=== PATIENT | female | born 1960 | race Caucasian/White ===

== ENCOUNTER 2021-08-14 15:38 | Outpatient (CLI) | payer OTHER, SELFPAY ==
--- NOTE | 2021-08-14 15:51 | US_ITS ---
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 Palpable area in the LEFT axilla after Covid 19 thorax examination. COMPARISON: None available. TECHNIQUE: 2-D and Doppler. There are multiple lymph nodes within the LEFT axilla. There is one lymph node labeled #3 with an asy mmetric cortex with normal fatty hilum and normal vascularity. This may be a reaction to Covid 19 of explanation. The remaining lymph nodes are normal. US/US breast LT limited* [id number] IMPRESSION: BI-RADS: 3-Probably Benign FOLLOW-UP: 3 Month Follow-up Single lymph node labeled #3 in the axilla with an asymmetric cortex and is susan y mildly abnormal. This may be a reaction to the patient's recent vaccination. Recommend follow-up ultrasound in 3 months. Also patient should be scheduled for a mammogram. This mammogram should be obta ined greater than 10 weeks post vaccination. Strongly recommend the mammogram b e obtained at the same time as the 3 month ultrasound follow-up.
== END 2021-08-14 15:39 | disposition home or self-care (01) ==
LOC: RAD 15:43
PROVIDERS: PCP Family Medicine; Visit Provider Family Medicine
DX: C50.012 Malignant neoplasm of nipple and areola, left female breast (principal); N63.20 Unspecified lump in the left breast, unspecified quadrant
CPT/HCPCS: 76642

== ENCOUNTER → 2021-09-17 08:06 | Outpatient (BNVA) | payer OTHER, SELFPAY | PROVIDERS: PCP Family Medicine; Referring Provider Family Medicine; Visit Provider Internal Medicine | DX: E11.65 Type 2 diabetes mellitus with hyperglycemia (principal); E11.40 Type 2 diabetes mellitus with diabetic neuropathy, unspecified; K76.0 Fatty (change of) liver, not elsewhere classified | CPT/HCPCS: 99204 ==

== ENCOUNTER → 2021-10-02 11:26 | Outpatient (BNVA) | payer OTHER, SELFPAY | PROVIDERS: PCP Family Medicine; Visit Provider Surgery | DX: Z86.010 Personal history of colon polyps (principal); Z20.822 Contact with and (suspected) exposure to COVID-19 | CPT/HCPCS: 87635 ==

== ENCOUNTER 2021-10-08 07:09 | Day surgery (SDC) | payer OTHER, SELFPAY ==
[2021-10-06 11:38] VITALS: BMI 39.6
--- NOTE | 2021-10-08 07:23 | ANES.PREANE2 ---
Pre-Anesthetic Assessment Pre-Anesthetic Assessment: Height/Weight: Height 1.55 m Weight 95.254 kg Preop Diagnosis: colon polyps Proposed Procedure: Operation Date: 10/08/21 08:45 Proposed Procedures p Colonoscopy 39106 Z86.010(Not Applicable) - Justin Jacobsen MD Familial anesthetic complications: None Was Beta Angela taken within 24 hours: N/A Was Clonidine taken within 24 hours: N/A Last intake: > 8 hrs Social: Social History: No alcohol and No tobacco Exam: Pre-Anes Outpt Exam: alert, oriented x 3, clear to auscultation bilaterally and regular rate & rhythm Airway: Cervical ROM: WNL MP: 1 Additional comments: 1 missing Hepatic: Comments: fatty Metabolic: Metabolic: DM, Hyperlipidemia and Morbid obesity Anesthetic Plan: ASA status: 2 Anesthesia: MAC Risk of > 500 ml blood loss (7ml/kg in children): No PFSH Anesthesia PFSH: Medical History Diabetes History of broken leg Limited mobility Surgical History History of appendectomy History of bilateral mastectomy 2013 History of colonoscopy with polypectomy History of oophorectomy Family History Father Lupus Hep C w/o coma, chronic Cancer Mother Dementia Diabetes Denies family history of CAD (coronary artery disease) Psychiatric illness Chronic kidney disease (CKD) Lung disease Hypertension Stroke Social History Smoking and tobacco status: never smoked Second hand smoke exposure: No Smoking risk assessment/counseling performed?: No Alcohol intake: current Alcohol intake frequency: holidays/special occasions only Desire information about alcohol rehabilitation?: No Counseling given: No Desire information about substance/drug rehabilitation?: No Counseling given: No Adopted: No Caregiver/support person: Yes Lives independently: Yes Household members: family Housing: House Marital status: Highest education level completed: High School Graduate service: No Current occupational status: employed History of recent travel: No Current gender identity: Female Agree to transfusion: Yes Data Anesthesia Cardiac Studies: No Data to Display
[2021-10-08 07:52] VITALS: BP 122/68; PULSE 80; RESP 18; TEMP 36.1; O2SAT 96
[2021-10-08] MEDS: sodium chloride 0.9% 1,000 ML 30 ML IV (08:14)
--- NOTE | 2021-10-08 08:57 | P.HP_ITS ---
Same Day Surgery H&P Indication for Procedure/HPI DATE OF PROCEDURE: October 08, 2021 CHIEF COMPLAINT/INDICATIONFOR SURGICAL PROCEDURE: I had a polyp before PREOP DIAGNOSIS: colon polyps and blood in stool PLANNED PROCEDRUE: Operation Date: 10/08/21 08:45 Proposed Procedures p Colonoscopy 30553 Z86.010(Not Applicable) - Justin Jacobsen MD 08/21/2021 This is a pleasant 61 years old female patient with a current weight of 210 pounds and a BMI of 39.6. Had history of colon polyps and bleeding per rectum. Attributing to hemorrhoids. Last colonoscopy was done 10 years ago. Patient denies history of colon cancer and she is referred to my practice for surveillance colonoscopy. Interim history 10/08/2021 Patient comes today for surveillance colonoscopy ROS All systems have been reviewed negative except as per the above or per problem list Medications/Allergies* Home Medications Medication Instructions Recorded Confirmed Type glipizide 10 mg tablet 10 mg PO BID 08/21/21 10/08/21 History ibuprofen 800 mg tablet 800 mg PO Q8H PRN 08/21/21 10/08/21 History metformin 1,000 mg tablet 1,000 mg PO BID 08/21/21 10/08/21 History canagliflozin [Invokana] 300 mg PO DAILY 10/06/21 10/08/21 History Allergies/Adverse Reactions Allergy/AdvReac Type Severity Reaction Status Date / Time No Known Allergies Allergy Verified 10/08/21 08:58 Current Medications: Generic Name Dose Route Start Last Admin Trade Name Freq PRN Reason Stop Dose Admin Sodium Chloride 1,000 mls @ 30 mls/hr 10/08/21 05:30 10/08/21 08:14 Sodium Chloride 0.9% IV 10/09/21 05:29 30 mls/hr .Q24H MANUEL Administration Pertinent History/Comorbid Conditions* Medical History (Updated 09/21/21 @ 14:38 by Evangelina Ferrara MD) Diabetes History of broken leg Limited mobility Surgical History (Updated 09/21/21 @ 14:36 by Evangelina Ferrara MD) History of appendectomy History of bilateral mastectomy 2012 History of colonoscopy with polypectomy History of oophorectomy Family History (Updated 09/17/21 @ 08:19 by Christine Pearl LPN) Father Mother Diabetes Mother Lupus Father Hep C w/o coma, chronic Father Dementia Mother Cancer Father Denies family history of CAD (coronary artery disease) Psychiatric illness Chronic kidney disease (CKD) Lung disease Hypertension Stroke Social History Smoking and tobacco status: never smoked Second hand smoke exposure: No Smoking risk assessment/counseling performed?: No Alcohol intake: current Alcohol intake frequency: holidays/special occasions only Desire information about alcohol rehabilitation?: No Counseling given: No Desire information about substance/drug rehabilitation?: No Counseling given: No Adopted: No Caregiver/support person: Yes Lives independently: Yes Household members: family Housing: House Marital status: Highest education level completed: High School Graduate service: No Current occupational status: employed History of recent travel: No Current gender identity: Female Agree to transfusion: Yes Pertinent Exam Findings alert, oriented x 3, regular rate & rhythm and procedure specific exam findings (Normal examination nontender nondistended soft and obese) Recommendations Surgery/Procedure today (Colonoscopy with possible biopsy) Other Plans: Plan of care; After thorough history and physical examination and reviewing the chart, plan to perform surveillance colonoscopy. I discussed with the patient in details the risks,benefits,alternatives and indications.The risk of aspiration, bleeding, soft tissue injury, perforation of the colon and other potential concomitant complications were explained to the patient in details,also the potential need for Laproscoy/Laparotomy to repair any related complications including but not limited to colectomy and or Closotomy.The patient understood this well and did agree to proceed. Rationale was carefully and clearly discussed with the patient.Appropriate informed consent have been reviewed and signed All questions have been answered and all concerns have been addressed to patient's satisfaction. 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
[2021-10-08 09:36] VITALS: BP 104/66; PULSE 93; RESP 16; TEMP 36.2; O2SAT 95
[2021-10-08 09:46] VITALS: BP 109/70; PULSE 86; RESP 16; O2SAT 92
--- NOTE | 2021-10-08 15:37 | ANE.PACU2 ---
Inpatient post-anesthesia follow up: Airway intact: Yes Vital signs: Temperature 97.1 F Pulse Rate 86 Respiratory Rate 16 Blood Pressure 109/70 Pulse Oximetry 92 Oxygen Delivery Me thod Room Air Oxygen Flow Rate 4 Fraction of Inspir ed Oxygen Hydration adequate: Yes Nausea and vomiting: No Pain level: 1 Mental status: Baseline
[2021-10-15 12:32] LABS: Glucose Point of Care 169 mg/dL (70-110)
== END 2021-10-08 10:06 | disposition home or self-care (01) ==
PROVIDERS: PCP Family Medicine; Visit Provider Surgery
PROC: 0DJD8ZZ Inspection of Lower Intestinal Tract, Via Natural or Artificial Opening Endoscopic (ICD-10-PCS; CPT 45378; principal; 2021-10-08 08:45)
DX: Z12.11 Encounter for screening for malignant neoplasm of colon (principal); Z86.010 Personal history of colon polyps; K92.1 Melena; Z68.39 Body mass index [BMI] 39.0-39.9, adult; Z79.84 Long term (current) use of oral hypoglycemic drugs; E11.9 Type 2 diabetes mellitus without complications; E66.01 Morbid (severe) obesity due to excess calories; E78.5 Hyperlipidemia, unspecified; K57.30 Diverticulosis of large intestine without perforation or abscess without bleeding
CPT/HCPCS: 36416; 45378; 82962; 96360; 96361; J2704; J7030

== ENCOUNTER 2021-10-15 09:56 | Outpatient (CLI) | payer SELFPAY ==
--- NOTE | 2021-10-15 10:00 | CT_ITS ---
WS: [id number] LDCT LUNG CANCER SCREENING TECHNIQUE: Noncontrast CT of the chest with coronal and sagittal reformatted images. CLINICAL INFORMATION: HX OF TOBACCO USE COMPARISON: None. DLP: 49.44 mGy.cm DIvol: 1.[address] scans at [facility] use at least one of these dose optimization techniques: automat ed exposure control; mA and/or kV adjustment per patient size (includes targeted exams where dose is matched to clinical indication); or iterative reconstruction. FINDINGS: Noncalcified 4 mm nodule left lower lobe. A few tiny calcified granulomas. 3 mm tiny noncalcified nod ule left lower lobe. Aortic calcification. Coronary calcification. No mediastinal or hilar lymphadeno adnriy. Small esophageal hiatal hernia. Small calcified left thyroid nodule. CT/CT lung screening [id number] IMPRESSION: LUNG-RADS: 2-Benign Appearance or Behavior FOLLOW UP: 12 Month: Continue annual screening with LDCT
--- NOTE | 2021-10-15 10:00 | US_ITS ---
WS: [id number] ULTRASOUND ABDOMEN LIMITED CLINICAL INFORMATION: ELEVATED LIVER ENZYMES/PAGET'S DZ OF BREAST COMPARISON: None. FINDINGS: Liver Size: Enlarged Craniocaudal length: 20.9 cm. Echogenicity: Coarse Surface nodularity: None. Mass (size and location): None. Bile ducts Intrahepatic ducts: Normal. Common bile duct diameter: 0.3 cm. Gallbladder Normal. Gallstones: None. Gallbladder sludge: None. Gallbladder wall thickening: None. Pericholecystic fluid: None. Sonographic Umanzor sign: Absent. Pancreas Normal as visualized. Right kidney: Normal. Hydronephrosis: None. Size: 11.6 cm x 4.9 cm x 4.7 cm. Abdominal aorta and IVC Visualized portions are normal. Ascites: None. US/US abdomen limited [id number] IMPRESSION: 1. Hepatomegaly with diffuse fatty infiltration. No intrahepatic biliary ducta l dilatation. 2. Normal gallbladder. 3. Normal common bile duct. 4. No hydronephrosis in right kidney.
== END 2021-10-15 09:57 | disposition home or self-care (01) ==
LOC: CT 09:57
PROVIDERS: PCP Family Medicine; Visit Provider Family Medicine
DX: R74.8 Abnormal levels of other serum enzymes (principal); C50.919 Malignant neoplasm of unspecified site of unspecified female breast; Z12.2 Encounter for screening for malignant neoplasm of respiratory organs; Z87.891 Personal history of nicotine dependence; R16.0 Hepatomegaly, not elsewhere classified; K76.0 Fatty (change of) liver, not elsewhere classified
CPT/HCPCS: 71271; 76705; 93976

== ENCOUNTER → 2021-11-11 15:36 | Outpatient (BNVA) | payer SELFPAY | PROVIDERS: PCP Family Medicine; Referring Provider Family Medicine; Visit Provider Podiatrist Foot & Ankle Surgery | DX: M19.072 Primary osteoarthritis, left ankle and foot (principal); M25.572 Pain in left ankle and joints of left foot | CPT/HCPCS: 73610 ==

== ENCOUNTER 2021-11-19 10:16 | Outpatient (CLI) | payer OTHER, SELFPAY ==
--- NOTE | 2021-11-19 10:28 | MM_ITS ---
WS: [id number] BILATERAL DIGITAL DIAGNOSTIC MAMMOGRAM MAMMOGRAPHY WITH CAD CLINICAL INFORMATION: UNSPEC LUMP IN AXILLARY TAIL LEFT BREAST COMPARISON: Ultrasound August 14, 2021 TECHNIQUE: Bilateral CC, MLO, and ML views. FINDINGS: Scattered fibroglandular densities bilaterally. Vascular calcification. No suspicious focal mass, asymmetry, calcifications, or architectural distortion. Ultrasound left axi lla is pending. ULTRASOUND BREAST LEFT TECHNIQUE: Ultrasound left breast focused area of concern. CLINICAL INFORMATION: UNSPEC LUMP IN AXILLARY TAIL LEFT BREAST. BILATERAL BREAST SORENESS. HISTORY OF PAGET'S DISEASE LEFT BREAST. COMPARISON: Ultrasound August 14, 2021 FINDINGS: Ultrasound left axilla in the area of concern. 2 lymph nodes are visualized today measuring 1.8 x 1.8 x 0.8 cm and 1.6 x 1.3 x 1.0 cm. Lymph nodes have decreased in size since the prior examination. Previously described cortical thicken ing with lobulation is not seen today. Lymph nodes have an unremarkable appearance. If persistent con cern or perceived enlargement, largest lymph node could be further evaluated with ultrasound guided b iopsy. Otherwise recommend return to annual screening mammography. MM/[place] [id number] IMPRESSION: BI-RADS: 2-Benign FOLLOW UP: 1 Year Follow-up Recommend return to annual screening mammography.
== END 2021-11-19 10:17 | disposition home or self-care (01) ==
LOC: RADSHAW 10:22
PROVIDERS: PCP Family Medicine; Visit Provider Family Medicine
DX: N63.32 Unspecified lump in axillary tail of the left breast (principal)
CPT/HCPCS: 76642; 77066

== ENCOUNTER → 2022-10-06 13:53 | Outpatient (BNVA) | payer MEDICAID, SELFPAY | PROVIDERS: PCP Family Medicine; Visit Provider Student in an Organized Health Care Education/Training Program | DX: M65.342 Trigger finger, left ring finger (principal) | CPT/HCPCS: 73130 ==

== ENCOUNTER → 2022-10-13 10:28 | Outpatient (BNVA) | payer MEDICAID, SELFPAY | PROVIDERS: PCP Family Medicine; Visit Provider Student in an Organized Health Care Education/Training Program | DX: M17.11 Unilateral primary osteoarthritis, right knee (principal) | CPT/HCPCS: 73560; 73565 ==

== ENCOUNTER 2022-10-16 10:21 | Outpatient (CLI) | payer MEDICAID, SELFPAY ==
--- NOTE | 2022-10-16 10:30 | CT_ITS ---
WS: [id number] LDCT LUNG CANCER SCREENING HISTORY: HX OF TOBACCO USE TECHNIQUE: Axial imaging performed from the apices to 1 cm below the costophrenic angles. Coronal and sagittal reformats are submitted with axial MIP series. All CT scans at [facility] use at least one of these dose optimization techniques: automated exposure control; mA and/or kV adjustment per patient size (includes targeted exams where dose is matched to clinical indication); or iterativ e reconstruction. DLP: 74.01 mGy.cm DIvol: Mean CTDIvol: 1.60 (mGy) COMPARISON: 10/15/2021 Diagnostic quality: Limited by breathing motion artifact. Lung Nodules: Noncalcified less than 4 mm nodules at the lung bases. There are 2 nodules at the LEFT lung base and a single nodule at the RIGHT lung base. No increase in size. No new nodules. No endobro nchial lesions. Lungs: Chronic emphysema and prior granulomatous disease. Heart: Normal size heart. Moderate coronary artery calcification. Other findings: Very mild atherosclerosis aorta. No enlargement of the pulmonary artery. Small hiatal hernia. CT/CT lung screening [id number] IMPRESSION: LUNG-RADS: 2-Benign Appearance or Behavior FOLLOW UP: 12 Month: Continue annual screening with LDCT OTHER FINDINGS (S MODIFIER): None.
== END 2022-10-16 10:22 | disposition home or self-care (01) ==
LOC: RAD 10:22
PROVIDERS: PCP Family Medicine; Visit Provider Family Medicine
DX: Z12.2 Encounter for screening for malignant neoplasm of respiratory organs (principal); Z87.891 Personal history of nicotine dependence
CPT/HCPCS: 71271

== ENCOUNTER 2022-10-28 06:17 | Day surgery (SDC) | payer MEDICAID, SELFPAY ==
[2022-10-27 10:59] VITALS: BMI 37.0
--- NOTE | 2022-10-28 06:41 | P.ANESASSM_ITS ---
Pre-Anesthetic Assessment Height/Weight: Height 1.55 m Weight 88.904 kg Preop Diagnosis: Left ring finger trigger Operation Date: 10/28/22 08:05 Proposed Procedures p Left ring finger trigger release 91453 m65.342(Left) - John Cantu DO Familial anesthetic complications: None Was Beta Angela taken within 24 hours: N/A Was Clonidine taken within 24 hours: N/A Last intake: > 8hrs Social No alcohol and No tobacco Exam alert, oriented x 3, clear to auscultation bilaterally and regular rate & rhythm Airway Mallampati: Class II Dentition: other (missing tooth) Hepatic fatty liver Metabolic Diabetes Mellitus, Hyperlipidemia and Morbid Obesity Anesthetic Plan ASA status: 3 Anesthesia: General Risk of > 500 ml blood loss (7ml/kg in children): No Medications/Allergies Home Medications Medication Instructions Recorded Confirmed Last Taken Type glipizide 10 mg tablet 10 mg PO BID 08/21/21 10/28/22 10/27/22 History ibuprofen 800 mg tablet 800 mg PO Q8H PRN Pain 08/21/21 10/27/22 10/27/22 History metformin 1,000 mg tablet 1,000 mg PO BID 08/21/21 10/27/22 10/27/22 History Non articulating AFO #1 ea 11/11/21 10/13/22 Unknown Rx liraglutide 0.6 mg/0.1 mL (18 mg/3 1.8 mg (0.3 mL) SUBCUT DAILY #27 mL 02/13/22 10/27/22 10/27/22 Rx mL) subcutaneous pen injector (Victoza 3-Kennedy) aspirin 81 mg tablet,delayed 81 mg PO DAILY 10/06/22 10/27/22 10/27/22 History release (Adult Low Dose Aspirin) atorvastatin 40 mg tablet 40 mg PO DAILY 10/27/22 10/27/22 10/27/22 History canagliflozin 300 mg tablet 300 mg PO DAILY 10/27/22 10/27/22 10/27/22 History (Invokana) Allergies Allergy/AdvReac Type Severity Reaction Status Date / Time No Known Allergies Allergy Verified 10/13/22 10:30 [facility] Anesthesia Medical History (Updated 10/17/22 @ 23:35 by John Cantu DO) Diabetes History of broken leg Limited mobility Right knee DJD Surgical History History of appendectomy History of bilateral mastectomy 2012 History of colonoscopy with polypectomy History of oophorectomy Family History Father Lupus Hep C w/o coma, chronic Cancer Mother Dementia Diabetes Denies family history of CAD (coronary artery disease) Psychiatric illness Chronic kidney disease (CKD) Lung disease Hypertension Stroke Social History Smoking and tobacco status: former smoker Second hand smoke exposure: No Smoking risk assessment/counseling performed?: No Alcohol intake: current Alcohol intake frequency: holidays/special occasions only Desire information about alcohol rehabilitation?: No Counseling given: No Desire information about substance/drug rehabilitation?: No Counseling given: No Adopted: No Caregiver/support person: Yes Lives independently: Yes Household members: family Housing: House Marital status: Highest education level completed: High School Graduate service: No Current occupational status: employed History of recent travel: No Current gender identity: Female Agree to transfusion: Yes Data Anesthesia Cardiac Studies: No Data to Display
[2022-10-28 06:46] LABS: Glucose Point of Care 222 mg/dL (70-110)
[2022-10-28] MEDS: sodium chloride 0.9% 1,000 ML 30 ML IV (06:46)
[2022-10-28] MEDS: acetaminophen 1,000 MG/100 ML PIGGYBACK 400 MG IV (06:47)
[2022-10-28] MEDS: ketorolac 30 mg/mL INJ IVP (06:47)
[2022-10-28 06:50] VITALS: BP 133/75; PULSE 75; RESP 18; TEMP 36.1; O2SAT 93
--- NOTE | 2022-10-28 06:56 | W.PM.OPSUD ---
Surgery/Procedure H&P Update DATE OF PROCEDURE: October 28, 2022 DATE H&P PERFORMED: 10/13/22 CHANGES TO PREVIOUS DOCUMENTATION: None PREOP DIAGNOSIS: Left ring finger trigger PRIMARY INDICATION FOR PROCEDURE: Left ring finger trigger PLANNED PROCEDURE: Operation Date: 10/28/22 08:05 Proposed Procedures p Left ring finger trigger release 87832 m65.342(Left) - John Cantu DO
[2022-10-28] MEDS: ceFAZolin 2,000 MG in sodium chloride 0.9% (plus) 50 ML 100 MG IV (07:52)
--- NOTE | 2022-10-28 08:26 | PM.OP2 ---
Brief Operative Note Date of procedure: 10/28/22 Pre-op diagnosis: Left ring finger trigger Post-op diagnosis: same Procedure Done: Left ring finger trigger release Surgeon: John Cantu Estimated blood loss (mL): 1 Complications: None Post-op Plan: Patient recover in PACU. Will discharge later today. Will be given appropriate discharge instruction as well as pain medication postoperatively. We will follow-up with me in the office in 2 weeks. Range of motion and weightbearing as tolerated to the left hand is tolerated. Patient to contact the office for any questions or concerns. 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
--- NOTE | 2022-10-28 08:28 | P.OP_ITS ---
Operative Report Date of procedure: October 28, 2022 Pre-op diagnosis: Preop Diagnosis Left ring finger trigger Post-op diagnosis: Same Procedure done: Left ring finger trigger release Surgeon: John Cantu DO Estimated blood loss: 1 mL 7 minutes IV fluids: See anesthesia record Complications: None Findings: See operative report narrative Condition: stable Disposition: same day Brief History: Patient's was seen and evaluated in the outpatient setting and findings consistent with a left ring finger trigger finger. She is failed conservative treatment we talked about her treatment options as far as nonoperative and operative intervention. At this point in time she is failed conservative kanwal tment and elected to proceed with surgical intervention of a left ring finger trigger release. We talked about the risk benefits complication alternatives to surgical treatment options through shared decision making she elects to proceed with surgical intervention. All questions been answered at this time. Consent was obtained in the office. Procedure: Patient was seen eval in the preoperative holding area. Consent was reviewed and signed with patient and the correct extremity was then marked. She was seen evaluated by the anesthesia department and once cleared for surgery she was taken back to the operative suite. Patient was transported onto the OR table. The left upper extremity was then placed on an armboard. Nonsterile tourniquet applied to the left upper extremity. Patient underwent anesthesia per the anesthesia department. Prior to prepping and draping under sterile aseptic technique the left ring finger was then locally anesthetized. She tolerated this without issues. The left upper extremity was then prepped and draped in standard orthopedic fashion. Final timeout performed. Patient received appropriate preoperative antibiotics. Esmarch tourniquet was used exsanguinate left upper extremity to 250 mmHg. A standard horizontal incision was subsequently made on patient's distal palmar flexor tendon crease centered over the left ring finger. Sharp scalpel excision was made through skin. I then switched to Littler dissection scissors and spread longitudinally in line with the tendon and digital bundles. Digital bundles were identified and then subsequently protected throughout this case. I direct visualization of the proximal portion of the A1 juana at this point time I used sharp scalpel incision to incise the proximal portion of the A1 juana. I then moved to my Littler dissection scissors and under direct visualization released the entirety of the A1 juana distally. The flexor tendon was noted to have no significant masses. This was then subsequently pulled out of the wound with a rag nail and of both the FDS and FDP tendons were thoroughly inspected. These were pulled multiple times through the wound and no residual triggering was noted. I then took the finger through range of motion and no catching or triggering noted. This completed trigger finger release. The tourniquet was then deflated. Wound was then thoroughly irrigated. Hemostasis satisfactory with bipolar electrocautery. I then closed the skin and interrupted nylon suture fashion. Incisions were covered with Xeroform 4 x 4's Curlex and an Tan wrap fresh bulky soft dressing. Patient was then awakened from anesthesia and taken to PACU in stable condition. Disposition: Patient was taken to PACU in stable condition. Patient recovering well. Will receive appropriate discharge instructions as well as pain medication postoperatively. She will follow-up with me in the office in 2 weeks for evaluation. We will see how her motion is at that time to determine if patient would be a needed candidate for OT hand therapy. Patient understands agrees with current plan. All questions answered.
--- NOTE | 2022-10-28 08:28 | PM.PACU ---
PACU note Narrative: Patient taken to PACU in stable condition. Dressing on in place clean dry and intact. Fingertips warm well perfused brisk capillary refill less than 2 seconds patient is able to wiggle fingers. Decreased sensation to the left ring finger secondary to local block. Exam: awake Disposition: discharged
[2022-10-28 08:30] VITALS: BP 102/55; PULSE 82; RESP 18; TEMP 36.1; O2SAT 96
[2022-10-28 08:35] VITALS: BP 91/63; PULSE 82; RESP 18; TEMP 36.1; O2SAT 96
[2022-10-28 08:40] VITALS: BP 93/58; PULSE 78; RESP 18; O2SAT 95
[2022-10-28] MEDS: ondansetron 2 mg/ML SDV 2 mL 4 MG IVP (08:53)
--- NOTE | 2022-10-28 14:59 | ANE.PACU2 ---
Inpatient post-anesthesia follow up: Airway intact: Yes Vital signs: Temperature 97.0 F Pulse Rate 78 Respiratory Rate 18 Blood Pressure 93/58 Pulse Oximetry 95 Oxygen Delivery Me thod Room Air Oxygen Flow Rate 6 Fraction of Inspir ed Oxygen Hydration adequate: Yes Nausea and vomiting: No Pain level: 1 Mental status: Baseline
== END 2022-10-28 09:10 | disposition home or self-care (01) ==
PROVIDERS: PCP Family Medicine; Visit Provider Student in an Organized Health Care Education/Training Program
PROC: (CPT 26055; principal; 2022-10-28 07:55)
DX: M65.342 Trigger finger, left ring finger (principal); K76.0 Fatty (change of) liver, not elsewhere classified; E11.9 Type 2 diabetes mellitus without complications; E78.5 Hyperlipidemia, unspecified; E66.01 Morbid (severe) obesity due to excess calories; Z68.37 Body mass index [BMI] 37.0-37.9, adult; Z87.891 Personal history of nicotine dependence
CPT/HCPCS: 26055; 36416; 82962; J0131; J0690; J1885; J2405; J2704; J2795; J3490; J7030

== ENCOUNTER 2023-02-15 08:36 | Outpatient (CLI) | payer MEDICAID, SELFPAY ==
--- NOTE | 2023-02-15 08:44 | MM_ITS ---
WS: [id number] Bilateral screening 3D tomosynthesis digital mammogram, 02/15/2023 Clinical Data: SCREENING Comparison: 11/19/2021 Findings: The breast parenchymal pattern shows fat replacement. No spiculated masses or clustered calcification s are seen. There are no secondary signs of carcinoma. There is a calcified vessel in the left axilla along with lymph nodes. MM/[place] [id number] Impression: 1. Negative bilateral mammogram unchanged. 2. Recommend annual screening mammograms. BIRADS: 1-Negative FOLLOW UP: 1 Year Follow-up The CAD receiving dock checker was used.
== END 2023-02-15 08:37 | disposition home or self-care (01) ==
PROVIDERS: PCP Family Medicine; Visit Provider Family Medicine
DX: Z12.31 Encounter for screening mammogram for malignant neoplasm of breast (principal)
CPT/HCPCS: 77063; 77067

== ENCOUNTER 2023-07-16 08:01 | Outpatient (CLI) | payer MEDICAID, SELFPAY ==
[2023-07-16 08:58] LABS: Alanine Aminotransferase 38 U/L (0-33); Alkaline Phosphatase 77 U/L (35-105); Aspartate Amino Transferase 34 U/L (0-32); Blood Urea Nitrogen 20 mg/dL (8-23); Calcium 9.4 mg/dL (8.5-10.5); Carbon Dioxide 23 mmol/L (22-29); Chloride 101 mmol/L (98-107); Chol HDL Ratio 2.31 mg/dL (0.0-4.40); Cholesterol 113 mg/dL (0-200); Globulin 3.2 g/dL (1.3-4.6); Glomerular Filtration Rate 84.2 mL/min (90-130); Glucose 206 mg/dL (65-115); HDL Cholesterol 49 mg/dL (60-100); LDL Cholesterol Calculated 49 mg/dL (50-129); Osmolality Calculated 295 mOsm/kg (285-295); Sodium 138 mmol/L (136-145); Total Bilirubin 0.4 mg/dL (0.15-1.2); Total Protein 7.2 g/dL (6.6-8.7); Triglycerides 77 mg/dL (0-150)
[2023-07-16 09:09] LABS: Anion Gap 18.1 (5-19); Potassium 4.1 mmol/L (3.5-5.1)
[2023-07-16 09:21] LABS: Creatinine Urine, Random 83 mg/dL (28-217); Microalbum Creatinine Ratio Ur 36 mg/dL (0-20); Microalbumin Random Urine 3 ug/dL (0-20)
[2023-07-16 09:24] LABS: Estmated Average Glucose 192; Hemoglobin A1C 8.3 % (4.0-6.0)
== END 2023-07-16 08:02 | disposition home or self-care (01) ==
PROVIDERS: PCP Family Medicine; Visit Provider Internal Medicine
DX: E11.65 Type 2 diabetes mellitus with hyperglycemia (principal); E11.40 Type 2 diabetes mellitus with diabetic neuropathy, unspecified; E78.2 Mixed hyperlipidemia; K76.0 Fatty (change of) liver, not elsewhere classified
CPT/HCPCS: 36415; 80053; 80061; 82044; 83036

== ENCOUNTER 2023-09-23 07:50 | Outpatient (CLI) | payer MEDICAID, SELFPAY ==
[2023-09-23 08:40] LABS: Estmated Average Glucose 174; Hemoglobin A1C 7.7 % (4.0-6.0)
[2023-09-23 08:49] LABS: Alanine Aminotransferase 40 U/L (0-33); Albumin Level 4.3 g/dL (3.5-5.2); Alkaline Phosphatase 74 U/L (35-105); Anion Gap 17.1 (5-19); Aspartate Amino Transferase 24 U/L (0-32); Blood Urea Nitrogen 14 mg/dL (8-23); Calcium 9.6 mg/dL (8.5-10.5); Carbon Dioxide 21 mmol/L (22-29); Chloride 100 mmol/L (98-107); Cholesterol 108 mg/dL (0-200); Free T4 Free Thyroxine 1.08 ng/dL (0.82-1.77); Glomerular Filtration Rate 124.2 mL/min (90-130); Glucose 234 mg/dL (65-115); HDL Cholesterol 47 mg/dL (60-100); LDL Cholesterol Calculated 50 mg/dL (50-129); LDL HDL Ratio 1.06 RATIO (0.00-3.22); Osmolality Calculated 286 mOsm/kg (285-295); Potassium 4.1 mmol/L (3.5-5.1); Sodium 134 mmol/L (136-145); Thyroid Stimulating Hormone 1.74 uIU/mL (0.27-4.20); Total Bilirubin 0.5 mg/dL (0.15-1.2); Total Protein 7.3 g/dL (6.6-8.7); Triglycerides 54 mg/dL (0-150)
[2023-09-23 09:19] LABS: Creatinine Urine, Random 57 mg/dL (28-217); Microalbum Creatinine Ratio Ur 18 mg/dL (0-20); Microalbumin Random Urine 1 ug/dL (0-20)
== END 2023-09-23 07:51 | disposition home or self-care (01) ==
PROVIDERS: PCP Family Medicine; Visit Provider Internal Medicine
DX: E11.40 Type 2 diabetes mellitus with diabetic neuropathy, unspecified (principal); E78.2 Mixed hyperlipidemia; K76.0 Fatty (change of) liver, not elsewhere classified; L65.9 Nonscarring hair loss, unspecified
CPT/HCPCS: 36415; 80053; 80061; 82044; 83036; 84439; 84443

== ENCOUNTER 2023-11-01 07:55 | Outpatient (CLI) | payer MEDICAID, SELFPAY ==
--- NOTE | 2023-11-01 08:05 | CT_ITS ---
WS: [id number] LDCT LUNG CANCER SCREENING TECHNIQUE: Noncontrast CT of the chest with coronal and sagittal reformatted images. CLINICAL INFORMATION: HX OF TOBACCO USE COMPARISON: 2021 DLP: 98.62 mGy.cm DIvol: Mean CTDIvol: 2.60 (mGy) All CT scans at [facility] use at least one of these dose optimization techniques: automat ed exposure control; mA and/or kV adjustment per patient size (includes targeted exams where dose is matched to clinical indication); or iterative reconstruction. FINDINGS: Stable bilateral noncalcified subcentimeter nodules in the lung bases measuring up to 4 mm. No new hummel spicious pulmonary parenchymal opacities. No mediastinal or hilar lymphadenopathy. No axillary lympha denopathy. Nodule LEFT thyroid unchanged. Hypertrophic changes thoracic spine. Chronic emphysematous changes. Calcified granulomas. Vascular calcification including coronary. Small esophageal hiatal hernia. Normal adrenal glands. IMPRESSION: CT/CT lung screening [id number] LUNG-RADS: 2-Benign Appearance or Behavior FOLLOW UP: 12 Month: Continue annual screening with LDCT
== END 2023-11-01 07:56 | disposition home or self-care (01) ==
LOC: RAD 07:56
PROVIDERS: PCP Family Medicine; Visit Provider Family Medicine
DX: Z12.2 Encounter for screening for malignant neoplasm of respiratory organs (principal); Z87.891 Personal history of nicotine dependence
CPT/HCPCS: 71271

== ENCOUNTER 2023-12-24 07:59 | Outpatient (CLI) | payer MEDICAID, SELFPAY ==
[2023-12-24 09:21] LABS: Alanine Aminotransferase 32 U/L (0-33); Albumin Level 3.9 g/dL (3.5-5.2); Alkaline Phosphatase 89 U/L (35-105); Anion Gap 18.1 (5-19); Aspartate Amino Transferase 20 U/L (0-32); Blood Urea Nitrogen 20 mg/dL (8-23); Calcium 9.6 mg/dL (8.5-10.5); Carbon Dioxide 24 mmol/L (22-29); Chloride 102 mmol/L (98-107); Chol HDL Ratio 2.29 mg/dL (0.0-4.40); Cholesterol 94 mg/dL (0-200); Globulin 3.8 g/dL (1.3-4.6); Glomerular Filtration Rate 84.2 mL/min (90-130); Glucose 142 mg/dL (65-115); HDL Cholesterol 41 mg/dL (60-100); LDL Cholesterol Calculated 40 mg/dL (50-129); LDL HDL Ratio 0.98 RATIO (0.00-3.22); Osmolality Calculated 295 mOsm/kg (285-295); Potassium 4.1 mmol/L (3.5-5.1); Sodium 140 mmol/L (136-145); Total Bilirubin 0.3 mg/dL (0.15-1.2); Total Protein 7.7 g/dL (6.6-8.7); Triglycerides 65 mg/dL (0-150)
[2023-12-24 09:27] LABS: Estmated Average Glucose 169; Hemoglobin A1C 7.5 % (4.0-6.0)
[2023-12-24 09:48] LABS: Creatinine Urine, Random 71 mg/dL (28-217); Microalbum Creatinine Ratio Ur 14 mg/dL (0-20); Microalbumin Random Urine 1 ug/dL (0-20)
== END 2023-12-24 08:00 | disposition home or self-care (01) ==
PROVIDERS: PCP Family Medicine; Visit Provider Internal Medicine
DX: E11.65 Type 2 diabetes mellitus with hyperglycemia (principal); E11.40 Type 2 diabetes mellitus with diabetic neuropathy, unspecified
CPT/HCPCS: 80053; 80061; 82044; 83036

== ENCOUNTER 2024-02-17 07:42 | Outpatient (CLI) | payer MEDICARE, MEDICAID, SELFPAY ==
--- NOTE | 2024-02-17 07:50 | MM_ITS ---
WS: [id number] Bilateral screening 3D tomosynthesis digital mammogram, 02/17/2024 Clinical Data: SCREENING Comparison: 02/15/2023, 11/19/2021. Findings: The breast parenchymal pattern shows fat replacement. No spiculated masses or clustered calcification s are seen. There are no secondary signs of carcinoma. There are lymph nodes in both axilla. Vascular calcifications are present. Impression: 1. Negative bilateral mammogram unchanged. 2. Recommend annual screening mammograms. MM/[place] [id number] BIRADS: 1-Negative FOLLOW UP: See Report The CAD chemical checker was used.
== END 2024-02-17 07:43 | disposition home or self-care (01) ==
LOC: RAD 07:44
PROVIDERS: PCP Family Medicine; Visit Provider Family Medicine
DX: Z12.31 Encounter for screening mammogram for malignant neoplasm of breast (principal)
CPT/HCPCS: 77063; 77067

== ENCOUNTER 2024-04-26 14:34 | Outpatient (CLI) | payer MEDICARE, SELFPAY ==
--- NOTE | 2024-04-26 14:38 | XR_ITS ---
WS: [id number] SCREENING DEXA SCAN [employer] CLINICAL INFORMATION: POSTMENOPAUSAL/OSTEOPOROSIS SCREENING COMPARISON: None. FINDINGS: The L1-L4 bone mineral density measures 1.368 g/cm2. This corresponds to a T score score of 1.6 and Z score of 2.4. Left femoral neck bone mineral density measures 1.140 g/cm2. This corresponds to a T score of 1.1 and Z score of 1.7. Right femoral neck bone mineral density measures 1.157 g/cm2. This corresponds to a T score 1.2of and Z score of 1.8. Mean femoral neck bone mineral density measures 1.149 g/cm2. This corresponds to a T score of 1.1 and Z score of 1.8. XR/XR DEXA axial skeleton* [id number] IMPRESSION: Normal bone mineralization. Patient's FRAX calculated 10 year probability for major osteoporotic fracture i s 9.2% and osteoporotic hip fracture is 0.2%.
== END 2024-04-26 14:35 | disposition home or self-care (01) ==
LOC: RAD 14:34
PROVIDERS: PCP Family Medicine; Visit Provider Family Medicine
DX: Z78.0 Asymptomatic menopausal state (principal); Z13.820 Encounter for screening for osteoporosis
CPT/HCPCS: 77080

== ENCOUNTER 2024-06-14 08:01 | Outpatient (CLI) | payer MEDICARE, SELFPAY ==
[2024-06-14 08:34] LABS: Estmated Average Glucose 171; Hemoglobin A1C 7.6 % (4.0-6.0)
[2024-06-14 08:43] LABS: Alanine Aminotransferase 49 U/L (0-33); Albumin Level 4.4 g/dL (3.5-5.2); Alkaline Phosphatase 97 U/L (35-105); Anion Gap 16.6 (5-19); Aspartate Amino Transferase 29 U/L (0-32); Blood Urea Nitrogen 30 mg/dL (8-23); Calcium 9.4 mg/dL (8.5-10.5); Carbon Dioxide 26 mmol/L (22-29); Chloride 98 mmol/L (98-107); Chol HDL Ratio 2.37 mg/dL (0.0-4.40); Cholesterol 121 mg/dL (0-200); Globulin 3.9 g/dL (1.3-4.6); Glucose 203 mg/dL (65-115); HDL Cholesterol 51 mg/dL (60-100); LDL Cholesterol Calculated 55 mg/dL (50-129); LDL HDL Ratio 1.08 RATIO (0.00-3.22); Osmolality Calculated 294 mOsm/kg (285-295); Potassium 4.6 mmol/L (3.5-5.1); Sodium 136 mmol/L (136-145); Total Bilirubin 0.4 mg/dL (0.15-1.2); Total Protein 8.3 g/dL (6.6-8.7); Triglycerides 76 mg/dL (0-150)
[2024-06-14 09:01] LABS: Creatinine Urine, Random 56 mg/dL (28-217); Microalbum Creatinine Ratio Ur 18 mg/dL (0-20); Microalbumin Random Urine 1 ug/dL (0-20)
== END 2024-06-14 08:02 | disposition home or self-care (01) ==
LOC: LAB 08:02
PROVIDERS: PCP Family Medicine; Visit Provider Internal Medicine
DX: E11.40 Type 2 diabetes mellitus with diabetic neuropathy, unspecified (principal)
CPT/HCPCS: 36415; 80053; 80061; 82044; 83036

== ENCOUNTER → 2024-07-03 08:46 | Outpatient (BNVA) | payer MEDICARE, SELFPAY | PROVIDERS: PCP Family Medicine; Visit Provider Internal Medicine | DX: E11.40 Type 2 diabetes mellitus with diabetic neuropathy, unspecified (principal); E78.2 Mixed hyperlipidemia; K76.0 Fatty (change of) liver, not elsewhere classified; L65.9 Nonscarring hair loss, unspecified; Z79.84 Long term (current) use of oral hypoglycemic drugs; Z79.85 Long-term (current) use of injectable non-insulin antidiabetic drugs | CPT/HCPCS: 99214 ==

== ENCOUNTER → 2024-07-11 11:11 | Outpatient (BNVA) | payer MEDICARE, SELFPAY | PROVIDERS: PCP Family Medicine; Visit Provider Internal Medicine | DX: E11.65 Type 2 diabetes mellitus with hyperglycemia (principal); E11.40 Type 2 diabetes mellitus with diabetic neuropathy, unspecified; E78.2 Mixed hyperlipidemia; L65.9 Nonscarring hair loss, unspecified; Z79.84 Long term (current) use of oral hypoglycemic drugs | CPT/HCPCS: 99214 ==

== ENCOUNTER → 2024-07-21 08:37 | Outpatient (BNVA) | payer MEDICARE, SELFPAY | PROVIDERS: PCP Family Medicine; Visit Provider Physician Assistant | DX: M65.331 Trigger finger, right middle finger (principal) | CPT/HCPCS: 73130; 99214 ==

== ENCOUNTER 2024-12-21 06:56 | Outpatient (CLI) | payer MEDICARE, SELFPAY ==
[2024-12-21 07:34] LABS: Estmated Average Glucose 174; Hemoglobin A1C 7.7 % (4.0-6.0)
[2024-12-21 07:40] LABS: Alanine Aminotransferase 69 U/L (0-33); Albumin Level 4.2 g/dL (3.5-5.2); Alkaline Phosphatase 85 U/L (35-105); Anion Gap 15.5 (5-19); Aspartate Amino Transferase 44 U/L (0-32); Blood Urea Nitrogen 25 mg/dL (8-23); Calcium 9.8 mg/dL (8.5-10.5); Carbon Dioxide 28 mmol/L (22-29); Chloride 101 mmol/L (98-107); Chol HDL Ratio 2.45 mg/dL (0.0-4.40); Cholesterol 120 mg/dL (0-200); Globulin 3.9 g/dL (1.3-4.6); Glucose 208 mg/dL (65-115); HDL Cholesterol 49 mg/dL (60-100); LDL Cholesterol Calculated 59 mg/dL (50-129); Osmolality Calculated 300 mOsm/kg (285-295); Potassium 4.5 mmol/L (3.5-5.1); Sodium 140 mmol/L (136-145); Total Bilirubin 0.4 mg/dL (0.15-1.2); Total Protein 8.1 g/dL (6.6-8.7); Triglycerides 58 mg/dL (0-150)
[2024-12-21 07:46] LABS: Creatinine Urine, Random 60 mg/dL (28-217); Microalbum Creatinine Ratio Ur 17 mg/dL (0-20); Microalbumin Random Urine 1 ug/dL (0-20)
== END 2024-12-21 06:57 | disposition home or self-care (01) ==
PROVIDERS: PCP Family Medicine; Visit Provider Internal Medicine
DX: E11.65 Type 2 diabetes mellitus with hyperglycemia (principal); E11.40 Type 2 diabetes mellitus with diabetic neuropathy, unspecified; E78.2 Mixed hyperlipidemia; K76.0 Fatty (change of) liver, not elsewhere classified
CPT/HCPCS: 36415; 80053; 80061; 82044; 83036

== ENCOUNTER → 2024-12-22 12:04 | Outpatient (BNVA) | payer MEDICARE, SELFPAY | PROVIDERS: PCP Family Medicine; Visit Provider Internal Medicine | DX: E11.65 Type 2 diabetes mellitus with hyperglycemia (principal); E78.2 Mixed hyperlipidemia; K76.0 Fatty (change of) liver, not elsewhere classified; E11.40 Type 2 diabetes mellitus with diabetic neuropathy, unspecified; L65.9 Nonscarring hair loss, unspecified | CPT/HCPCS: 99214 ==

== ENCOUNTER 2025-02-27 08:16 | Outpatient (CLI) | payer MEDICARE, SELFPAY ==
--- NOTE | 2025-02-27 08:22 | MM_ITS ---
WS: [id number] BILATERAL 3D TOMOSYNTHESIS DIGITAL SCREENING MAMMOGRAPHY WITH CAD CLINICAL INFORMATION: SCREENING HISTORY: Screening mammogram. No current complaints. COMPARISON: 2023 TECHNIQUE: Bilateral CC and MLO views. FINDINGS: Scattered fibroglandular densities bilaterally. No suspicious focal mass, asymmetry, calcifications, or architectural distortion. No evidence of malignancy. Vascular calcification. MM/MM scr BI tomosynthesis [id number] IMPRESSION: DENSITY: There are scattered areas of fibroglandular density. BI-RADS: 2 - Benign. FOLLOW UP: 1 Year Follow-up Recommend return to annual screening mammography.
== END 2025-02-27 08:17 | disposition home or self-care (01) ==
PROVIDERS: PCP Family Medicine; Visit Provider Family Medicine
DX: Z12.31 Encounter for screening mammogram for malignant neoplasm of breast (principal); R92.323 Mammographic fibroglandular density, bilateral breasts; I70.90 Unspecified atherosclerosis
CPT/HCPCS: 77063; 77067

== ENCOUNTER 2025-03-12 08:10 | Outpatient (CLI) | payer MEDICARE, SELFPAY ==
[2025-03-12 09:40] LABS: Alanine Aminotransferase 42 U/L (0-33); Albumin Level 4.3 g/dL (3.5-5.2); Alkaline Phosphatase 75 U/L (35-105); Aspartate Amino Transferase 24 U/L (0-32); Blood Urea Nitrogen 24 mg/dL (8-23); Calcium 9.6 mg/dL (8.5-10.5); Carbon Dioxide 23 mmol/L (22-29); Chloride 103 mmol/L (98-107); Chol HDL Ratio 2.34 mg/dL (0.0-4.40); Cholesterol 117 mg/dL (0-200); Globulin 3.6 g/dL (1.3-4.6); Glomerular Filtration Rate 83.7 mL/min (90-130); Glucose 145 mg/dL (65-115); HDL Cholesterol 50 mg/dL (60-100); LDL Cholesterol Calculated 52 mg/dL (50-129); LDL HDL Ratio 1.04 RATIO (0.00-3.22); Osmolality Calculated 291 mOsm/kg (285-295); Sodium 137 mmol/L (136-145); Total Bilirubin 0.4 mg/dL (0.15-1.2); Total Protein 7.9 g/dL (6.6-8.7); Triglycerides 75 mg/dL (0-150)
[2025-03-12 09:41] LABS: Creatinine Urine, Random 88 mg/dL (28-217); Microalbum Creatinine Ratio Ur 11 mg/dL (0-20); Microalbumin Random Urine 1 ug/dL (0-20)
[2025-03-12 09:43] LABS: Estmated Average Glucose 166; Hemoglobin A1C 7.4 % (4.0-6.0)
== END 2025-03-12 08:11 | disposition home or self-care (01) ==
LOC: LAB 08:14
PROVIDERS: PCP Family Medicine; Visit Provider Internal Medicine
DX: E11.65 Type 2 diabetes mellitus with hyperglycemia (principal); E78.2 Mixed hyperlipidemia; K76.0 Fatty (change of) liver, not elsewhere classified
CPT/HCPCS: 36415; 80053; 80061; 82044; 83036

== ENCOUNTER → 2025-03-19 07:53 | Outpatient (BNVA) | payer MEDICARE, SELFPAY | PROVIDERS: PCP Family Medicine; Visit Provider Internal Medicine | DX: E11.40 Type 2 diabetes mellitus with diabetic neuropathy, unspecified (principal); E78.2 Mixed hyperlipidemia; K76.0 Fatty (change of) liver, not elsewhere classified; L65.9 Nonscarring hair loss, unspecified | CPT/HCPCS: 99214 ==

== ENCOUNTER 2025-06-06 06:44 | Outpatient (CLI) | payer MEDICARE, SELFPAY ==
[2025-06-06 08:01] LABS: Alanine Aminotransferase 32 U/L (0-33); Albumin Level 4.0 g/dL (3.5-5.2); Alkaline Phosphatase 88 U/L (35-105); Anion Gap 18.3 (5-19); Aspartate Amino Transferase 21 U/L (0-32); Blood Urea Nitrogen 19 mg/dL (8-23); Calcium 9.3 mg/dL (8.5-10.5); Carbon Dioxide 24 mmol/L (22-29); Chloride 102 mmol/L (98-107); Cholesterol 116 mg/dL (0-200); Globulin 3.7 g/dL (1.3-4.6); Glucose 138 mg/dL (65-115); HDL Cholesterol 51 mg/dL (60-100); Osmolality Calculated 294 mOsm/kg (285-295); Potassium 4.3 mmol/L (3.5-5.1); Sodium 140 mmol/L (136-145); Total Protein 7.7 g/dL (6.6-8.7); Triglycerides 52 mg/dL (0-150)
[2025-06-06 08:04] LABS: Creatinine Urine, Random 67 mg/dL (28-217); Microalbum Creatinine Ratio Ur 15 mg/dL (0-20)
[2025-06-06 08:19] LABS: Estmated Average Glucose 154; Hemoglobin A1C 7.0 % (4.0-6.0)
== END 2025-06-06 06:45 | disposition home or self-care (01) ==
PROVIDERS: PCP Family Medicine; Visit Provider Internal Medicine
DX: L65.9 Nonscarring hair loss, unspecified (principal); E78.2 Mixed hyperlipidemia; E11.40 Type 2 diabetes mellitus with diabetic neuropathy, unspecified; K76.0 Fatty (change of) liver, not elsewhere classified; E11.65 Type 2 diabetes mellitus with hyperglycemia
CPT/HCPCS: 36415; 80053; 80061; 82044; 83036

== ENCOUNTER → 2025-06-18 08:10 | Outpatient (BNVA) | payer MEDICARE, SELFPAY | PROVIDERS: PCP Family Medicine; Visit Provider Internal Medicine | DX: E11.65 Type 2 diabetes mellitus with hyperglycemia (principal); E11.40 Type 2 diabetes mellitus with diabetic neuropathy, unspecified; K76.0 Fatty (change of) liver, not elsewhere classified; E78.2 Mixed hyperlipidemia | CPT/HCPCS: 99214 ==

== ENCOUNTER 2025-09-14 07:32 | Outpatient (CLI) | payer MEDICARE, SELFPAY ==
[2025-09-14 08:08] LABS: Estmated Average Glucose 151; Hemoglobin A1C 6.9 % (4.0-6.0)
[2025-09-14 08:13] LABS: Alanine Aminotransferase 34 U/L (0-33); Albumin Level 4.2 g/dL (3.5-5.2); Alkaline Phosphatase 82 U/L (35-105); Anion Gap 17.1 (5-19); Aspartate Amino Transferase 19 U/L (0-32); Blood Urea Nitrogen 31 mg/dL (8-23); Calcium 9.5 mg/dL (8.5-10.5); Carbon Dioxide 23 mmol/L (22-29); Chloride 102 mmol/L (98-107); Cholesterol 119 mg/dL (0-200); Globulin 3.6 g/dL (1.3-4.6); Glucose 129 mg/dL (65-115); HDL Cholesterol 51 mg/dL (60-100); Osmolality Calculated 294 mOsm/kg (285-295); Potassium 4.1 mmol/L (3.5-5.1); Sodium 138 mmol/L (136-145); Total Protein 7.8 g/dL (6.6-8.7); Triglycerides 76 mg/dL (0-150)
[2025-09-14 08:14] LABS: Creatinine Urine, Random 68 mg/dL (28-217); Microalbum Creatinine Ratio Ur 15 mg/dL (0-20)
== END 2025-09-14 07:33 | disposition home or self-care (01) ==
PROVIDERS: PCP Family Medicine; Visit Provider Internal Medicine
DX: E11.65 Type 2 diabetes mellitus with hyperglycemia (principal); K76.0 Fatty (change of) liver, not elsewhere classified
CPT/HCPCS: 36415; 80053; 80061; 82044; 83036